=== PATIENT | male | born 1995 | race Caucasian/White ===

== ENCOUNTER → 2018-08-25 | Emergency (ER) | payer BC ==
[~2018-08-25] VITALS: Ht 172.7 cm; Wt 61.2 kg
== END ==
LOC: ED 20:26
DX: J06.9 Acute upper respiratory infection, unspecified (principal); F17.200 Nicotine dependence, unspecified, uncomplicated
CPT/HCPCS: 87880; 99283

== ENCOUNTER 2019-07-11 19:47 | Emergency (ER) | payer BC ==
[~2019-07-11] VITALS: Ht 172.7 cm; Wt 61.2 kg
[2019-07-11] MEDS ORDERED: ZOFRAN4 MG PO (21:48)
== END 2019-07-11 22:08 | disposition home or self-care (01) ==
LOC: ED 19:47
DX: K52.9 Noninfective gastroenteritis and colitis, unspecified (principal); F17.200 Nicotine dependence, unspecified, uncomplicated
CPT/HCPCS: 80053; 81001; 83690; 83735; 85025; 96361; 96374; 99284-25; J2405; J7030

== ENCOUNTER 2019-09-24 19:33 | Emergency (ER) | payer BC ==
[~2019-09-24] VITALS: Ht 172.7 cm; Wt 61.2 kg
[~2019-09-24 19:33] MED LIST: ZOFRAN4 MG PO
[2019-09-24] MEDS ORDERED: ZOFRAN4 MG PO (23:18)
== END 2019-09-24 23:30 | disposition home or self-care (01) ==
LOC: ED 19:33
DX: A08.4 Viral intestinal infection, unspecified (principal); F17.200 Nicotine dependence, unspecified, uncomplicated
CPT/HCPCS: 80053; 81001; 83735; 85025; 96361; 96374; 99283-25; J2405; J7030

== ENCOUNTER 2020-06-09 15:58 | Emergency (ER) | payer BC ==
[~2020-06-09] VITALS: Ht 170.2 cm; Wt 72.6 kg
--- NOTE | 2020-06-10 18:49 | PATH ---
[facility] [address] [facility] [place], [place] [address] Signed ORDERING PHYSICIAN: Ernesto Briseno MD PATIENT NAME: STEVO SAAVEDRA GENDER: M : 1995 SPECIMEN(S): No Source Given MOLECULAR PATHOLOGY RESULTS: SARS-CoV-2 Not Detected ADDITIONAL NOTES.: The [employer] Fusion SARS-CoV-2 Assay is a multiplex real-time PCR (RT-PCR) in vitro diagnostic test intended for the qualitative detection of RNA from SARS-CoV-2 from individuals who meet COVID-19 clinical and/or epidemiological criteria. In general, SARS-CoV-2 RNA can be detected during the acute phase of infection. Positive results indicate the presence of SARS-CoV-2 RNA. Clinical correlation with patient history and other diagnostic information is necessary to determine patient infection status. Positive results do not rule out bacterial infection or co-infection with other viruses. Negative results do not preclude SARS-CoV-2 infection and should not be used as the sole basis for patient management decisions. Negative results must be combined with other clinical observations, patient history, and epidemiological information. The [employer] Fusion SARS-CoV-2 Assay is not yet approved or cleared by the [place] FDA. When there are no FDA-approved or cleared tests available, and other criteria are met, FDA can make tests available under an emergency access mechanism called an Emergency Use Authorization (EUA). The EUA for this test is supported by the Truck Engine Technician of Health and Human Service's (HHS's) declaration that circumstances exist to justify the emergency use of in vitro diagnostics for the detection and/or diagnosis of the virus that causes COVID-19. This EUA will remain in effect for the duration of the COVID-19 declaration justifying emergency of IVDs, unless it is terminated or revoked by FDA, after which the test may no longer be used. The [employer] Fusion SARS-CoV-2 Assay is for use only under EUA in US laboratories certified under the Clinical Laboratory Improvement Amendments of 1988 (CLIA) to perform high complexity tests. [facility] is certified under CLIA to perform high complexity PATIENT NAME: STEVO SAAVEDRA PATHOLOGY DATE OF : [birth year] REPORT #: [id number] PHYSICIAN: DIONNE DAWSON PCP: NO PRIMARY CARE PHYSICIAN REPORT IS CONFIDENTIAL AND NOT TO BE RELEASED WITHOUT AUTHORIZATION [address] [address] Signed clinical laboratory testing. PERFORMING LABORATORY.: Molecular testing was performed by [facility] [place] [address] (Plate Fitter: Renato Acevedo D.O.; CLIA#: [id number]) Diagnostician: System Interface Pathologist Electronically Signed 06/10/2020 Copies: ~ PATIENT NAME: STEVO SAAVEDRA TIM PATHOLOGY DATE OF : [birth year] REPORT #: [id number] PHYSICIAN: DIONNE DAWSON PCP: NO PRIMARY CARE PHYSICIAN REPORT IS CONFIDENTIAL AND NOT TO BE RELEASED WITHOUT AUTHORIZATION
== END 2020-06-09 16:43 | disposition home or self-care (01) ==
LOC: ED 15:58
DX: B34.9 Viral infection, unspecified (principal); Z20.828 Contact with and (suspected) exposure to other viral communicable diseases; F17.200 Nicotine dependence, unspecified, uncomplicated
CPT/HCPCS: 99283; C9803